=== PATIENT | male | born 1950 | race Caucasian/White ===

== ENCOUNTER 2019-05-27 22:46 | Inpatient (IN) | payer OTHER ==
[~2019-05-27] VITALS: Ht 170.2 cm; Wt 79.3 kg
[2019-05-27] MEDS ORDERED: OXYcodone/APAP 10/325MG TABLET PO ONE (23:30)
--- NOTE | 2019-05-27 23:50 | NUR ---
patient given order pain medications. aided with repositioning in bed. patient tolerated well. will continue to monitor.
[2019-05-27] MEDS ORDERED: OXYcodone/APAP 10/325MG TABLET ONE (23:53)
[2019-05-28] MEDS ORDERED: LATA2.5D3 EACHEYE (00:29)
[2019-05-28] MEDS ORDERED: APIX2.5T PO (00:29)
[2019-05-28] MEDS ORDERED: BUSP5TAB2 PO (00:29)
[2019-05-28] MEDS ORDERED: ATOR10TA9 PO (00:29)
[2019-05-28] MEDS ORDERED: INSU100V8 SQ (00:29)
[2019-05-28] MEDS ORDERED: MENT3.5O TP (00:29)
[2019-05-28] MEDS ORDERED: MAGN400T36 PO (00:29)
[2019-05-28] MEDS ORDERED: CYAN500L4 PO (00:29)
[2019-05-28] MEDS ORDERED: AMOX875T PO (00:29)
[2019-05-28] MEDS ORDERED: INSU100C5 SQ-INSULIN (00:29)
[2019-05-28] MEDS ORDERED: METF500T17 PO ×2 (00:29)
[2019-05-28] MEDS ORDERED: [UNRECOGNIZED DRUG - CODE] TP (00:29)
[2019-05-28] MEDS ORDERED: FLUO15OI TP (00:29)
[2019-05-28] MEDS ORDERED: CLOP75TA52 PO (00:29)
[2019-05-28] MEDS ORDERED: DOCU-131 PO (00:29)
[2019-05-28] MEDS ORDERED: BRIM5DRO4 OP (00:29)
[2019-05-28] MEDS ORDERED: GABA400C PO (00:29)
[2019-05-28] MEDS ORDERED: OXYcodone IR 5MG TABLET PO PRN (00:30)
[2019-05-28] MEDS ORDERED: ONDANSETRON ODT 4 MG PO PRN (00:30)
[2019-05-28] MEDS ORDERED: BISACODYL 10 MG SUPP PR PRN (00:30)
[2019-05-28] MEDS ORDERED: hydrALAzine 20 MG/ML, 1ML IVPush PRN (00:30)
[2019-05-28] MEDS ORDERED: PROMETHAZINE 25 MG/ML, 1ML IM PRN (00:30)
[2019-05-28] MEDS ORDERED: DOCUSATE 100 MG CAPSULE PO PRN (00:30)
[2019-05-28] MEDS ORDERED: ACETAMINOPHEN 325 MG TABLET PO PRN (00:30)
[2019-05-28] MEDS ORDERED: ONDANSETRON 2MG/ML, 2ML IVPush PRN (00:30)
[2019-05-28] MEDS ORDERED: POLYETHYLENE GLYCOL 17 GM PACKET PO PRN (00:30)
[2019-05-28] MEDS ORDERED: VANCOMYCIN PMX 1GM/200ML 200 ML IV ONE (00:30)
[2019-05-28] MEDS ORDERED: VANCOMYCIN PER PHARMACY MC PRN (00:30)
[2019-05-28] MEDS ORDERED: TAMS-11 PO (00:33)
[2019-05-28] MEDS ORDERED: TRAZ-175 PO (00:33)
[2019-05-28] MEDS ORDERED: PROC10TA2 PO (00:33)
[2019-05-28] MEDS ORDERED: OXYC10TA72 PO (00:33)
[2019-05-28] MEDS ORDERED: METH500T7 PO (00:33)
[2019-05-28] MEDS ORDERED: ZOLP5TAB PO (00:33)
[2019-05-28] MEDS ORDERED: TOPI25CA3 PO (00:33)
[2019-05-28] MEDS ORDERED: SERT100T32 PO (00:33)
[2019-05-28] MEDS: LATANOPROST OPHTH 0.005%, 2.5ML EACHEYE SCH ×2 (01:00→20:30)
[2019-05-28] MEDS: TRAZODONE 150MG TABLET PO SCH ×2 (01:00→20:29)
--- NOTE | 2019-05-28 01:00 | NUR ---
lab at bedside drawing blood cultures/labs
[2019-05-28 01:27] LABS: HCT (SEDRATE) 28.6 % (39.2-51.8)
[2019-05-28] MEDS: APIXABAN/LOVENOX MC SCH ×4 (01:30→04:30)
[2019-05-28] MEDS ORDERED: PHARMACOKINETIC CONSULTATION MC ONE (01:30)
[2019-05-28] MEDS ORDERED: PHARMACOKINETIC MONITORING MC PRN (01:30)
[2019-05-28] MEDS ORDERED: VANCOMYCIN 1,500 MG in SODIUM CHLORIDE 0.9% 250 ML IV ONE (01:30)
[2019-05-28 01:36] VITALS: BP 124/72
[2019-05-28 01:46] LABS: FREE T4 (FREE THYROXINE) 1.56 ng/dL (0.76-1.46)
[2019-05-28] MEDS: SODIUM CHLORIDE 0.9% 1,000 ML IV SCH ×2 (02:18→10:22)
[2019-05-28] MEDS: ATORVASTATIN 40 MG TABLET PO SCH ×2 (02:19→20:29)
[2019-05-28] MEDS: GABAPENTIN 400 MG CAPSULE PO SCH ×4 (02:19→20:29)
[2019-05-28] MEDS: AMPICILLIN/SULBACTAM 3 GM in SODIUM CHLORIDE 0.9% 100 ML IV SCH ×4 (02:19→20:43)
[2019-05-28] MEDS: METHOCARBAMOL 500 MG TABLET PO SCH ×4 (02:19→20:29)
[2019-05-28] MEDS: OxyconTIN ER 10 MG TAB.ER PO SCH ×5 (02:19→20:29)
[2019-05-28 02:23] LABS: CREATININE 0.74 mg/dL (0.7-1.3)
[2019-05-28] MEDS: ZOLPIDEM 10MG TABLET PO SCH ×2 (02:41→20:29)
[2019-05-28] MEDS ORDERED: FLUOCINONIDE 0.05% TP SCH (09:00)
[2019-05-28] MEDS: DOCUSATE CALCIUM 240 MG CAPSULE PO SCH (09:00)
[2019-05-28] MEDS ORDERED: APIXABAN 2.5 MG TABLET PO SCH (09:00)
[2019-05-28 09:20] VITALS: BP 119/75
[2019-05-28] MEDS: PROCHLORPERAZINE 10MG TABLET PO SCH (10:09)
[2019-05-28] MEDS: CYANOCOBALAMIN 1,000 MCG TABLET PO SCH (10:09)
[2019-05-28] MEDS: CLOPIDOGREL 75 MG TABLET PO SCH (10:09)
[2019-05-28] MEDS: TOPIRAMATE 25 MG TABLET PO SCH (10:10)
[2019-05-28] MEDS: MAGNESIUM CHLORIDE 64 MG TABLET.DR PO SCH ×2 (10:11→20:29)
[2019-05-28] MEDS: BUSPIRONE 5 MG TABLET PO SCH (10:11)
[2019-05-28] MEDS: TAMSULOSIN 0.4 MG CAP.ER.24H PO SCH (10:14)
[2019-05-28] MEDS ORDERED: SERTRALINE 100MG TABLET ONE (10:18)
[2019-05-28] MEDS: SERTRALINE 50MG TABLET PO SCH (10:34)
[2019-05-28] MEDS: INSULIN LISPRO 100 UNITS/ML, PEN SQ-INSULIN SCH ×3 (11:00→20:31)
[2019-05-28] MEDS ORDERED: ENOXAPARIN 40 MG/0.4 ML SQ SCH (11:00)
[2019-05-28] MEDS: FLUOCINONIDE CRM 0.05%, 15GM TP SCH (11:35)
[2019-05-28] MEDS: BRIMONIDINE TART. OPHTH 0.2%, 5ML OP SCH ×2 (11:35→20:30)
[2019-05-28] MEDS: VANCOMYCIN 1,500 MG in SODIUM CHLORIDE 0.9% 250 ML IV SCH (12:00)
[2019-05-28] MEDS ORDERED: MAGNESIUM SULFATE PMX 2GM/50ML 50 ML IV ONE (12:00)
[2019-05-28 12:38] VITALS: BP 125/78
[2019-05-28 21:53] VITALS: BP 122/79
[2019-05-29] MEDS: AMPICILLIN/SULBACTAM 3 GM in SODIUM CHLORIDE 0.9% 100 ML IV SCH ×3 (01:48→13:28)
[2019-05-29 01:53] VITALS: BP 120/74
[2019-05-29] MEDS: OxyconTIN ER 10 MG TAB.ER PO SCH ×4 (05:33→20:15)
[2019-05-29] MEDS: VANCOMYCIN 1,500 MG in SODIUM CHLORIDE 0.9% 250 ML IV SCH ×2 (05:34→23:59)
[2019-05-29 06:57] LABS: ALBUMIN 1.6 g/dL (3.4-5.0); ANION GAP 7 mmol/L (5-15); CALCIUM 8.7 mg/dL (8.5-10.1); CHLORIDE 103 mmol/L (98-107)
[2019-05-29] MEDS: INSULIN LISPRO 100 UNITS/ML, PEN SQ-INSULIN SCH ×4 (07:00→20:19)
[2019-05-29 07:02] VITALS: BP 114/73
[2019-05-29 07:03] LABS: ALANINE AMINOTRANSFERASE 46 U/L (12-78); ALKALINE PHOSPHATASE 670 U/L (45-117); CHOL/HDL RATIO 46.3; CHOLESTEROL, TOTAL 278 mg/dL (140-239); CREATININE 0.68 mg/dL (0.7-1.3); HDL CHOL % 2 % (26-37); HDL CHOLESTEROL (DIRECT) 6 mg/dL (40-60); TOTAL PROTEIN 6.6 g/dL (6.4-8.2)
[2019-05-29 07:06] LABS: MEAN CORPUSCULAR HEMOGLOBIN 32.9 pg (27.5-34.5); MEAN CORPUSCULAR HGB CONC 33.3 g/dL (33.2-36.2); MEAN CORPUSCULAR VOLUME 99.1 fL (81-97); MEAN PLATELET VOLUME 9.6 fL (7.4-10.4); PLATELET COUNT 241 x10^3/uL (130-400); RED CELL DISTRIBUTION WIDTH 19.8 % (9.4-14.8)
[2019-05-29 07:08] LABS: LDL CHOLESTEROL,CALCULATED 229 mg/dL (54-169); LDL/HDL RATIO 38.2 (0.5-3.0); TRIGLYCERIDES 213 mg/dL (50-200); VLDL CHOLESTEROL 43 mg/dL (0-25)
[2019-05-29 07:44] LABS: MD YES
[2019-05-29 07:46] LABS: ANISOCYTOSIS 1+; LYMPH#(MANUAL) 1.55 x10^3/uL (1-3.4); LYMPHS% (MANUAL) 14 % (22-44); MONOS#(MANUAL) 0.33 x10^3/uL (0.3-2.7); MONOS% (MANUAL) 3 % (2-9); SEG#(MANUAL) 9.21 x10^3/uL (1.8-6.8); SEGS% (MANUAL) 83 % (42-75)
[2019-05-29 07:47] LABS: <PLATELET ESTIMATE> ADEQUATE; LARGE PLATELETS 1+; POLYCHROMASIA 1+
[2019-05-29] MEDS: FLUOCINONIDE CRM 0.05%, 15GM TP SCH (08:41)
[2019-05-29] MEDS: BRIMONIDINE TART. OPHTH 0.2%, 5ML OP SCH ×2 (08:41→20:18)
[2019-05-29] MEDS: SERTRALINE 50MG TABLET PO SCH (08:44)
[2019-05-29] MEDS: GABAPENTIN 400 MG CAPSULE PO SCH ×3 (08:44→20:16)
[2019-05-29] MEDS: METHOCARBAMOL 500 MG TABLET PO SCH ×3 (08:44→20:15)
[2019-05-29] MEDS: MAGNESIUM CHLORIDE 64 MG TABLET.DR PO SCH ×2 (08:44→20:16)
[2019-05-29] MEDS: CLOPIDOGREL 75 MG TABLET PO SCH (08:44)
[2019-05-29] MEDS: BUSPIRONE 5 MG TABLET PO SCH (08:45)
[2019-05-29] MEDS: PROCHLORPERAZINE 10MG TABLET PO SCH (08:45)
[2019-05-29] MEDS: TAMSULOSIN 0.4 MG CAP.ER.24H PO SCH (08:45)
[2019-05-29] MEDS: CYANOCOBALAMIN 1,000 MCG TABLET PO SCH (08:46)
[2019-05-29] MEDS: DOCUSATE CALCIUM 240 MG CAPSULE PO SCH (08:46)
[2019-05-29] MEDS: TOPIRAMATE 25 MG TABLET PO SCH (08:46)
[2019-05-29 13:36] VITALS: BP 124/72
[2019-05-29] MEDS ORDERED: POTASSIUM CHLORIDE 20 MEQ TAB.ER.PRT PO ONE (14:30)
[2019-05-29] MEDS: ENOXAPARIN 40 MG/0.4 ML SQ SCH (14:41)
[2019-05-29] MEDS: PIPERACILLIN/TAZO/PMX 3.375GM 50 ML IV SCH ×2 (15:59→22:00)
[2019-05-29] MEDS: ATORVASTATIN 80 MG TABLET PO SCH (20:15)
[2019-05-29] MEDS: TRAZODONE 150MG TABLET PO SCH (20:15)
[2019-05-29] MEDS: ZOLPIDEM 10MG TABLET PO SCH (20:16)
[2019-05-29] MEDS: LATANOPROST OPHTH 0.005%, 2.5ML EACHEYE SCH (20:16)
[2019-05-29 20:52] VITALS: BP 107/71
[2019-05-30 02:45] VITALS: BP 116/70
[2019-05-30] MEDS: PIPERACILLIN/TAZO/PMX 3.375GM 50 ML IV SCH ×4 (03:27→21:32)
[2019-05-30] MEDS: OxyconTIN ER 10 MG TAB.ER PO SCH ×4 (05:35→20:09)
[2019-05-30] MEDS: INSULIN LISPRO 100 UNITS/ML, PEN SQ-INSULIN SCH ×3 (07:59→20:10)
[2019-05-30] MEDS: BUSPIRONE 5 MG TABLET PO SCH (08:00)
[2019-05-30] MEDS: TAMSULOSIN 0.4 MG CAP.ER.24H PO SCH (08:00)
[2019-05-30] MEDS: PROCHLORPERAZINE 10MG TABLET PO SCH (08:00)
[2019-05-30] MEDS: METHOCARBAMOL 500 MG TABLET PO SCH ×3 (08:00→20:09)
[2019-05-30] MEDS: TOPIRAMATE 25 MG TABLET PO SCH (08:01)
[2019-05-30] MEDS: BRIMONIDINE TART. OPHTH 0.2%, 5ML OP SCH ×2 (08:01→20:11)
[2019-05-30] MEDS: CLOPIDOGREL 75 MG TABLET PO SCH (08:01)
[2019-05-30] MEDS: SERTRALINE 50MG TABLET PO SCH (08:01)
[2019-05-30] MEDS: FLUOCINONIDE CRM 0.05%, 15GM TP SCH (08:02)
[2019-05-30] MEDS: CYANOCOBALAMIN 1,000 MCG TABLET PO SCH (08:02)
[2019-05-30] MEDS: MAGNESIUM CHLORIDE 64 MG TABLET.DR PO SCH ×2 (08:02→20:09)
[2019-05-30] MEDS: DOCUSATE CALCIUM 240 MG CAPSULE PO SCH (08:02)
[2019-05-30] MEDS: GABAPENTIN 400 MG CAPSULE PO SCH ×3 (08:07→20:09)
[2019-05-30] MEDS ORDERED: FENTANYL PF 100 MCG/2ML ONE (08:30)
[2019-05-30] MEDS ORDERED: FLUMAZENIL 0.1 MG/1 ML, 5ML ONE (08:31)
[2019-05-30] MEDS ORDERED: NALOXONE 1 MG/ML, 2ML ONE (08:31)
[2019-05-30] MEDS ORDERED: MIDAZOLAM 1 MG/ML, 5ML ONE (08:31)
[2019-05-30 09:35] VITALS: BP 97/67
[2019-05-30 11:46] LABS: MEAN CORPUSCULAR HEMOGLOBIN 33.2 pg (27.5-34.5); MEAN CORPUSCULAR HGB CONC 33.2 g/dL (33.2-36.2); MEAN PLATELET VOLUME 9.6 fL (7.4-10.4); PLATELET COUNT 230 x10^3/uL (130-400); RED BLOOD COUNT 3.21 x10^6/uL (4.38-5.82); RED CELL DISTRIBUTION WIDTH 19.5 % (9.4-14.8)
[2019-05-30 11:52] LABS: ANION GAP 7 mmol/L (5-15); CALCIUM 8.2 mg/dL (8.5-10.1); CHLORIDE 105 mmol/L (98-107); CREATININE 0.95 mg/dL (0.7-1.3)
[2019-05-30 12:55] VITALS: BP 106/66
[2019-05-30 13:16] LABS: MD YES
[2019-05-30 13:17] LABS: <PLATELET ESTIMATE> ADEQUATE; <PLT MORPHOLOGY> NORMAL PLT MORPH; ANISOCYTOSIS 1+; BANDS%(MANUAL) 1 % (0-7); BASOS% (MANUAL) 1 % (0-1); LYMPHS% (MANUAL) 6 % (22-44); MONOS% (MANUAL) 9 % (2-9); POLYCHROMASIA 1+; SEGS% (MANUAL) 83 % (42-75)
[2019-05-30] MEDS: ENOXAPARIN 40 MG/0.4 ML SQ SCH (15:45)
[2019-05-30] MEDS: SODIUM CHLORIDE 0.9% 1,000 ML IV SCH (16:25)
[2019-05-30] MEDS: VANCOMYCIN 1,500 MG in SODIUM CHLORIDE 0.9% 250 ML IV SCH (18:09)
[2019-05-30] MEDS: ATORVASTATIN 80 MG TABLET PO SCH (20:09)
[2019-05-30] MEDS: ZOLPIDEM 10MG TABLET PO SCH (20:09)
[2019-05-30] MEDS: TRAZODONE 150MG TABLET PO SCH (20:10)
[2019-05-30] MEDS: LATANOPROST OPHTH 0.005%, 2.5ML EACHEYE SCH (20:11)
[2019-05-30 20:44] VITALS: BP 116/71
[2019-05-31] MEDS: SODIUM CHLORIDE 0.9% 1,000 ML IV SCH ×2 (02:22→12:31)
[2019-05-31] MEDS: INSULIN LISPRO 100 UNITS/ML, PEN SQ-INSULIN SCH ×4 (02:26→20:48)
[2019-05-31 02:56] VITALS: BP 103/69
[2019-05-31] MEDS: PIPERACILLIN/TAZO/PMX 3.375GM 50 ML IV SCH ×4 (03:40→22:17)
[2019-05-31] MEDS: OxyconTIN ER 10 MG TAB.ER PO SCH ×4 (05:24→20:46)
[2019-05-31 05:58] LABS: ALANINE AMINOTRANSFERASE 43 U/L (12-78); ALBUMIN 1.3 g/dL (3.4-5.0); ANION GAP 7 mmol/L (5-15); CALCIUM 8.2 mg/dL (8.5-10.1); CHLORIDE 108 mmol/L (98-107)
[2019-05-31 06:01] LABS: ALKALINE PHOSPHATASE 612 U/L (45-117); BILIRUBIN,TOTAL 6.5 mg/dL (0.2-1.0); TOTAL PROTEIN 6.2 g/dL (6.4-8.2)
[2019-05-31 06:17] LABS: MEAN CORPUSCULAR HEMOGLOBIN 32.9 pg (27.5-34.5); MEAN CORPUSCULAR HGB CONC 32.2 g/dL (33.2-36.2); MEAN CORPUSCULAR VOLUME 102.2 fL (81-97); MEAN PLATELET VOLUME 9.6 fL (7.4-10.4); PLATELET COUNT 220 x10^3/uL (130-400); RED BLOOD COUNT 2.99 x10^6/uL (4.38-5.82)
[2019-05-31 06:43] LABS: MD YES
[2019-05-31 06:45] LABS: <PLATELET ESTIMATE> ADEQUATE; <PLT MORPHOLOGY> NORMAL PLT MORPH; ANISOCYTOSIS 1+; BAND#(MANUAL) 0.08 x10^3/uL; BANDS%(MANUAL) 1 % (0-7); EOS#(MANUAL) 0.32 x10^3/uL (0.0-0.4); EOS% (MANUAL) 4 % (1-7); LYMPHS% (MANUAL) 5 % (22-44); MONOS#(MANUAL) 1.11 x10^3/uL (0.3-2.7); MONOS% (MANUAL) 14 % (2-9); POLYCHROMASIA 1+; SEGS% (MANUAL) 76 % (42-75)
[2019-05-31 07:44] VITALS: BP 150/89
[2019-05-31] MEDS: DOCUSATE CALCIUM 240 MG CAPSULE PO SCH (09:00)
[2019-05-31] MEDS: SERTRALINE 50MG TABLET PO SCH (09:30)
[2019-05-31] MEDS: BRIMONIDINE TART. OPHTH 0.2%, 5ML OP SCH ×2 (09:30→20:47)
[2019-05-31] MEDS: MAGNESIUM CHLORIDE 64 MG TABLET.DR PO SCH ×2 (09:30→20:45)
[2019-05-31] MEDS: FLUOCINONIDE CRM 0.05%, 15GM TP SCH (09:30)
[2019-05-31] MEDS: PROCHLORPERAZINE 10MG TABLET PO SCH (09:30)
[2019-05-31] MEDS: CLOPIDOGREL 75 MG TABLET PO SCH (09:30)
[2019-05-31] MEDS: CYANOCOBALAMIN 1,000 MCG TABLET PO SCH (09:31)
[2019-05-31] MEDS: GABAPENTIN 400 MG CAPSULE PO SCH ×3 (09:31→20:45)
[2019-05-31] MEDS: TOPIRAMATE 25 MG TABLET PO SCH (09:31)
[2019-05-31] MEDS: BUSPIRONE 5 MG TABLET PO SCH (09:31)
[2019-05-31] MEDS: METHOCARBAMOL 500 MG TABLET PO SCH ×3 (09:31→20:46)
[2019-05-31] MEDS: TAMSULOSIN 0.4 MG CAP.ER.24H PO SCH (09:31)
[2019-05-31] MEDS: VANCOMYCIN 1,500 MG in SODIUM CHLORIDE 0.9% 250 ML IV SCH (12:31)
[2019-05-31 14:02] VITALS: BP 104/60
[2019-05-31] MEDS: ENOXAPARIN 40 MG/0.4 ML SQ SCH (16:12)
[2019-05-31 19:48] VITALS: BP 124/85
[2019-05-31] MEDS: ZOLPIDEM 10MG TABLET PO SCH (20:45)
[2019-05-31] MEDS: ATORVASTATIN 80 MG TABLET PO SCH (20:46)
[2019-05-31] MEDS: LATANOPROST OPHTH 0.005%, 2.5ML EACHEYE SCH (20:46)
[2019-05-31] MEDS: TRAZODONE 150MG TABLET PO SCH (20:46)
[2019-06-01] MEDS: SODIUM CHLORIDE 0.9% 1,000 ML IV SCH ×3 (00:37→20:00)
[2019-06-01 01:31] VITALS: BP 118/78
[2019-06-01] MEDS: PIPERACILLIN/TAZO/PMX 3.375GM 50 ML IV SCH ×3 (04:04→20:00)
[2019-06-01] MEDS: OxyconTIN ER 10 MG TAB.ER PO SCH ×4 (05:34→20:14)
[2019-06-01 07:51] VITALS: BP 102/66
[2019-06-01 07:58] LABS: ALANINE AMINOTRANSFERASE 48 U/L (12-78); ALBUMIN 1.3 g/dL (3.4-5.0); ANION GAP 9 mmol/L (5-15); CHLORIDE 105 mmol/L (98-107); CREATININE 0.86 mg/dL (0.7-1.3)
[2019-06-01 08:00] LABS: ALKALINE PHOSPHATASE 664 U/L (45-117); BILIRUBIN,TOTAL 6.7 mg/dL (0.2-1.0); TOTAL PROTEIN 6.2 g/dL (6.4-8.2)
[2019-06-01] MEDS: INSULIN LISPRO 100 UNITS/ML, PEN SQ-INSULIN SCH ×4 (08:36→20:13)
[2019-06-01] MEDS: MAGNESIUM CHLORIDE 64 MG TABLET.DR PO SCH ×2 (08:38→20:13)
[2019-06-01] MEDS: BUSPIRONE 5 MG TABLET PO SCH (08:38)
[2019-06-01] MEDS: BRIMONIDINE TART. OPHTH 0.2%, 5ML OP SCH ×2 (08:38→20:14)
[2019-06-01] MEDS: PROCHLORPERAZINE 10MG TABLET PO SCH (08:38)
[2019-06-01] MEDS: TAMSULOSIN 0.4 MG CAP.ER.24H PO SCH (08:39)
[2019-06-01] MEDS: DOCUSATE CALCIUM 240 MG CAPSULE PO SCH (08:39)
[2019-06-01] MEDS: TOPIRAMATE 25 MG TABLET PO SCH (08:39)
[2019-06-01] MEDS: METHOCARBAMOL 500 MG TABLET PO SCH ×3 (08:39→20:13)
[2019-06-01] MEDS: GABAPENTIN 400 MG CAPSULE PO SCH ×3 (08:39→20:13)
[2019-06-01] MEDS: SERTRALINE 50MG TABLET PO SCH (08:39)
[2019-06-01] MEDS: CLOPIDOGREL 75 MG TABLET PO SCH (08:39)
[2019-06-01] MEDS: CYANOCOBALAMIN 1,000 MCG TABLET PO SCH (08:39)
[2019-06-01] MEDS: FLUOCINONIDE CRM 0.05%, 15GM TP SCH (08:40)
[2019-06-01 14:25] VITALS: BP 109/70
[2019-06-01] MEDS: ENOXAPARIN 40 MG/0.4 ML SQ SCH (16:14)
[2019-06-01 19:31] VITALS: BP 135/73
[2019-06-01] MEDS: ATORVASTATIN 80 MG TABLET PO SCH (20:14)
[2019-06-01] MEDS: ZOLPIDEM 10MG TABLET PO SCH (20:14)
[2019-06-01] MEDS: LATANOPROST OPHTH 0.005%, 2.5ML EACHEYE SCH (20:14)
[2019-06-01] MEDS: TRAZODONE 150MG TABLET PO SCH (20:14)
[2019-06-02] MEDS: PIPERACILLIN/TAZO/PMX 3.375GM 50 ML IV SCH ×2 (01:53→08:04)
[2019-06-02 02:24] VITALS: BP 106/69
[2019-06-02] MEDS: OxyconTIN ER 10 MG TAB.ER PO SCH ×2 (05:02→11:09)
[2019-06-02 07:50] VITALS: BP 138/90
[2019-06-02] MEDS: INSULIN LISPRO 100 UNITS/ML, PEN SQ-INSULIN SCH ×2 (08:04→11:30)
[2019-06-02] MEDS: GABAPENTIN 400 MG CAPSULE PO SCH (09:57)
[2019-06-02] MEDS: FLUOCINONIDE CRM 0.05%, 15GM TP SCH (09:57)
[2019-06-02] MEDS: BRIMONIDINE TART. OPHTH 0.2%, 5ML OP SCH (09:57)
[2019-06-02] MEDS: SERTRALINE 50MG TABLET PO SCH (09:57)
[2019-06-02] MEDS: TAMSULOSIN 0.4 MG CAP.ER.24H PO SCH (09:57)
[2019-06-02] MEDS: CYANOCOBALAMIN 1,000 MCG TABLET PO SCH (09:57)
[2019-06-02] MEDS: CLOPIDOGREL 75 MG TABLET PO SCH (09:57)
[2019-06-02] MEDS: BUSPIRONE 5 MG TABLET PO SCH (09:58)
[2019-06-02] MEDS: METHOCARBAMOL 500 MG TABLET PO SCH (09:58)
[2019-06-02] MEDS: TOPIRAMATE 25 MG TABLET PO SCH (09:58)
[2019-06-02] MEDS: DOCUSATE CALCIUM 240 MG CAPSULE PO SCH (09:58)
[2019-06-02] MEDS: MAGNESIUM CHLORIDE 64 MG TABLET.DR PO SCH (09:58)
[2019-06-02] MEDS: PROCHLORPERAZINE 10MG TABLET PO SCH (09:58)
[2019-06-02] MEDS ORDERED: DOXY100T23 PO (10:45)
[2019-06-02] MEDS: SODIUM CHLORIDE 0.9% 1,000 ML IV SCH (12:00)
[2019-06-02 13:11] VITALS: BP 111/68
== END 2019-06-02 14:10 | disposition hospice, home (50) | DRG 638 ==
LOC: ED 05-28 00:15 → EDIP 05-28 00:22 → 3N 05-28 01:19
PROVIDERS: ADMIT Internal Medicine; ATTEND Internal Medicine
DX: E11.69 Type 2 diabetes mellitus with other specified complication (principal); M86.271 Subacute osteomyelitis, right ankle and foot; L03.115 Cellulitis of right lower limb; F11.20 Opioid dependence, uncomplicated; R65.10 Systemic inflammatory response syndrome (SIRS) of non-infectious origin without acute organ dysfunction; J96.11 Chronic respiratory failure with hypoxia; M86.671 Other chronic osteomyelitis, right ankle and foot; L97.519 Non-pressure chronic ulcer of other part of right foot with unspecified severity; E11.621 Type 2 diabetes mellitus with foot ulcer; E11.42 Type 2 diabetes mellitus with diabetic polyneuropathy; E11.51 Type 2 diabetes mellitus with diabetic peripheral angiopathy without gangrene; E11.622 Type 2 diabetes mellitus with other skin ulcer; E78.1 Pure hyperglyceridemia; E83.42 Hypomagnesemia; F41.1 Generalized anxiety disorder; H40.10X0 Unspecified open-angle glaucoma, stage unspecified; J44.9 Chronic obstructive pulmonary disease, unspecified; E78.5 Hyperlipidemia, unspecified; K21.9 Gastro-esophageal reflux disease without esophagitis; N40.0 Benign prostatic hyperplasia without lower urinary tract symptoms; G89.29 Other chronic pain; Z51.5 Encounter for palliative care; Z79.4 Long term (current) use of insulin; Z82.5 Family history of asthma and other chronic lower respiratory diseases; Z85.05 Personal history of malignant neoplasm of liver; Z85.09 Personal history of malignant neoplasm of other digestive organs; Z86.711 Personal history of pulmonary embolism; Z89.512 Acquired absence of left leg below knee; Z99.81 Dependence on supplemental oxygen; Z88.6 Allergy status to analgesic agent; Z88.8 Allergy status to other drugs, medicaments and biological substances
CPT/HCPCS: 36415; 73610; 73630; 99285; Q0164; 80048; 80053; 80061; 82565; 82962; 83036; 83735; 84439; 84443; 85025; 85651; 86140; 87040; 87070; 87077; 87186; 87205; 93926; 99156; 99157; G0378; J0295; J1650; J2250; J2543; J3010; J3370; J1815; J2310; J3475; J7030; J7050